=== PATIENT | female | born 1950 | race Caucasian/White ===

== ENCOUNTER 2016-11-01 09:06 | Day surgery (SDC) | payer MEDICARE ==
[~2016-11-01] VITALS: Ht 170.2 cm; Wt 111.1 kg
[~2016-11-01 09:06] MED LIST: HYDR25TA4 PO; MULT1CAP33 PO; PANT20TA2 PO; Sodium Chloride LOK Flush 10 mL Syringe IV PRN; fentaNYL-PF 50 mCg/mL 2 mL Inj IVPUSH PRN
[2016-11-01 09:25] VITALS: BP 144/87; PULSE 83; RESP 16; O2SAT 96
[2016-11-01] MEDS ORDERED: TERB250T4 PO (09:25)
[2016-11-01] MEDS: 0.9% Sodium Chloride 1,000 ML IV PRN ×2 (09:47→10:19)
[2016-11-01 10:31] VITALS: BP 137/72; PULSE 63; RESP 16; O2SAT 93
[2016-11-01 10:41] VITALS: BP 127/69; PULSE 62; RESP 16; O2SAT 91
[2016-11-01 10:51] VITALS: BP 137/72; PULSE 67; RESP 15; O2SAT 96
--- NOTE | 2016-11-01 10:55 | ENDO ---
[address] [address] ENDOSCOPY PROCEDURE PATIENT: TIA SAGE : 1950 MR#: [id number] ADMIT: 11/01/2016 JOB ID: [id number] DATE OF SERVICE: 11/01/2016 FIRST PROCEDURE PERFORMED: Esophagogastroduodenoscopy. INDICATION: Dysphagia. ASA CLASSIFICATION: The patient's ASA classification is II. MALLAMPATI SCORE: Mallampati score is 2. MEDICATIONS: 1. Versed 7 mg. 2. Fentanyl 150 mcg. INSTRUMENT USED: GIF-H180J. PROCEDURE DETAILS: After informed consent was obtained, the patient was brought into the GI suite, where she was placed on oxygen via nasal cannula and monitored with continuous pulse oximeter, telemetry, and blood pressure monitoring. A time-out was performed. Then, she was placed in the left lateral decubitus position, and medications were administered for sedation. A bite block was placed. A standard EGD scope was then inserted through the bite block and advanced under direct visualization to the second portion of the duodenum without difficulty. FINDINGS: 1. Normal appearing duodenal bulb, first and second portions. 2. Normal appearing pylorus. 3. Normal appearing antrum. In the proximal gastric body there was a focal area of erythema suggestive of mild gastritis. Multiple biopsies were obtained. 4. Retroflexed views in the gastric body revealed normal appearing cardia and fundus, and a hiatal hernia was appreciated. 5. The diaphragmatic hiatus was at approximately 40 cm, and the squamocolumnar junction was at 35 cm. At 35 cm, there was a partial Schatzki ring. As the patient had complaints of dysphagia, I elected to dilate the Schatzki ring. We did not encounter any resistance at the GE junction. The GE junction/Schatzki ring was dilated with a TTS balloon starting at 12 mm and extending to 15 mm sequentially. Following dilation to 15 mm, there was a small superficial tear noted at the GE junction. There was no active bleeding. 6. Remainder of the esophagus otherwise appeared unremarkable. IMPRESSION: 1. Schatzki ring at the gastroesophageal junction, status post dilation from 12 mm to 15 mm. 2. Focal gastritis in the proximal gastric body. 3. Hiatal hernia. RECOMMENDATIONS: 1. Continue PPI daily. 2. If dysphagia persists will plan for repeat EGD and dilation. 3. Proceed to colonoscopy. COMPLICATIONS: None. ESTIMATED BLOOD LOSS: Less than 5 mL. SECOND PROCEDURE PERFORMED: Colonoscopy. INDICATION: Colon cancer screening. ASA CLASSIFICATION, MALLAMPATI SCORE AND MEDICATIONS: Please see above for ASA classification, Mallampati score, and medications. INSTRUMENT USED: [id number]. PREPARATION QUALITY: Good. PROCEDURE DETAILS: After completion of the EGD exam, a digital rectal exam was performed which was unremarkable. The colonoscope was then inserted into the rectum and advanced under direct visualization to the cecum, which was identified by the presence of the ileocecal valve and appendiceal orifice. Once the cecum was reached, the colonoscope was withdrawn back into the rectum as the mucosa and lumen were examined. In the rectum, retroflexion was performed. Following retroflexion, remaining air in the rectum was suctioned, and procedure was completed. FINDINGS: 1. Scattered diverticula were seen throughout the left side of the colon. 2. A diminutive polyp was noted in the descending colon that was removed with cold biopsy forceps. 3. A diminutive polyp was noted in the sigmoid colon which was removed with cold biopsy forceps. 4. Small internal hemorrhoids were noted as the colonoscope was withdrawn from the rectum through the anal canal. IMPRESSION: 1. Left-sided diverticulosis. 2. Descending colon polyp. 3. Sigmoid polyp. 4. Internal hemorrhoids. RECOMMENDATIONS: 1. Fiber-rich diet. 2. Repeat colonoscopy pending polyp pathology results. 3. Follow up in GI clinic. COMPLICATIONS: None. ESTIMATED BLOOD LOSS: Less than 5 mL. MTDD
--- NOTE | 2016-11-02 11:28 | PATH ---
SURGICAL PATHOLOGY Attending Physician:Felton Freeman CASE STATUS: Signed Out PATIENT NAME: TIA SAGE PID: [id number] : 1950 DATE COLLECTED:11/01/2016 20:09 SPECIMEN: 1: Gastric, Biopsy 2: Colon, Biopsy 3: Colon, Biopsy CLINICAL HISTORY: GERD, COLON POLYP 1). GASTRIC BIOPSY 2). DESCENDING COLON POLYP 3). SIGMOID COLON POLYP FINAL DIAGNOSIS: 1.GASTRIC BIOPSY: SUPERFICIAL MILD CHRONIC GASTRITIS INVOLVING FUNDIC MUCOSA. Negative for evidence of Helicobacter. Negative for intestinal metaplasia. Negative for dysplasia and malignancy. 2.DESCENDING COLON POLYP: TUBULAR ADENOMA INVOLVING BOTH BIOPSY FRAGMENTS. 3.SIGMOID COLON POLYP: HYPERPLASTIC POLYP. ICD10 CODE D12.4 GROSS DESCRIPTION: The specimen is received in three formalin filled containers labeled with the patient's name. 1). The specimen is sublabeled "gastric" and consists of 3 portions of tissue which aggregate to 0.3 x 0.3 x 0.2 CM. The specimen is entirely submitted in cassette 1A. 2). The specimen is sublabeled "descending colon polyp" and consists of 2 portions of tissue which aggregate to 0.3 x 0.3 x 0.2 CM. The specimen is entirely submitted in cassette 2A. 3). The specimen is sublabeled "sigmoid colon polyp" and consists of a 0.3 x 0.2 x 0.2 CM portion of tissue which is entirely submitted in cassette 3A. 11/01/2016 DAC MICRO DESCRIPTION: See diagnosis. ICD-9 CODES: CPT CODES: 1: 05086 2: 55699 3: 43983 Electronically Signed Out Addison Delvalle MD [facility] Pathology [facility] [address], [place] [address] Technical component performed at [facility], [facility] [address], [place], [address]
== END 2016-11-01 23:59 | disposition home or self-care (01) ==
LOC: END 09:06
PROVIDERS: ATTEND Internal Medicine Gastroenterology
DX: Z12.11 Encounter for screening for malignant neoplasm of colon (principal); D12.4 Benign neoplasm of descending colon; K63.5 Polyp of colon; K64.8 Other hemorrhoids; K21.9 Gastro-esophageal reflux disease without esophagitis; K22.2 Esophageal obstruction; K29.50 Unspecified chronic gastritis without bleeding; K44.9 Diaphragmatic hernia without obstruction or gangrene; R13.10 Dysphagia, unspecified; I10 Essential (primary) hypertension; E78.5 Hyperlipidemia, unspecified; K57.30 Diverticulosis of large intestine without perforation or abscess without bleeding
CPT/HCPCS: 43239; 43249; 45380; 88305; 99153; G0500; J2250; J3010; J7030